=== PATIENT | male | born 1960 | race Caucasian/White ===

== ENCOUNTER → 2020-01-07 | Outpatient (CLI) | payer OTHER, MEDICAID ==
[~2020-01-07] MED LIST: ALLOPURINOL100 MG PO; AMLOPIDINE; ZOCOR
== END ==
LOC: COL.VAS 14:15
DX: I08.2 Rheumatic disorders of both aortic and tricuspid valves (principal); I77.810 Thoracic aortic ectasia; E66.9 Obesity, unspecified; I10 Essential (primary) hypertension; E78.5 Hyperlipidemia, unspecified; Z68.30 Body mass index [BMI] 30.0-30.9, adult

== ENCOUNTER → 2021-04-14 | Outpatient (CLI) | payer MEDICARE, MEDICAID ==
[2021-04-14 13:25] LABS: ALBUMIN 4.2 gm/dL (3.4-4.8); BILIRUBIN,TOTAL 0.9 mg/dL (0.2-1.2); CALCIUM 10.4 mg/dL (8.4-10.2); CREATININE, serum 0.8 mg/dL (0.72-1.25); POTASSIUM 3.9 mmol/L (3.5-4.5); TOTAL PROTEIN 7.2 gm/dL (6.2-8.1)
== END ==
LOC: COL.LAB 12:16
PROVIDERS: Registered Nurse
DX: R79.89 Other specified abnormal findings of blood chemistry (principal); F10.11 Alcohol abuse, in remission

== ENCOUNTER → 2021-04-25 | Outpatient (CLI) | payer MEDICARE, MEDICAID | LOC: COL.RAD 04-21 10:30 | DX: K76.0 Fatty (change of) liver, not elsewhere classified (principal); F10.11 Alcohol abuse, in remission ==

== ENCOUNTER → 2021-10-10 | Outpatient (CLI) | payer MEDICARE, MEDICAID | LOC: COL.RAD 10:00 | DX: K76.0 Fatty (change of) liver, not elsewhere classified (principal) ==

== ENCOUNTER 2021-11-07 15:33 | Observation (INO) | payer MEDICARE, MEDICAID ==
[~2021-11-07] VITALS: Ht 177.8 cm; Wt 106.5 kg
[2021-11-07 16:31] LABS: BASO # 0.1 K/mm3 (0.0-0.2); BASO % 0.6 % (0.0-2.0); GRAN # 7.8 K/mm3 (1.4-6.5); GRAN % 83.6 % (42.2-75.2); HEMOGLOBIN 11.7 g/dl (13.5-18.0); LYMPH # 0.6 K/mm3 (1.2-3.4); MEAN CELL VOLUME 90 fl (80.0-100.0); MEAN CORPUSCULAR HEMOGLOBIN 33 pg (27-31); MEAN CORPUSCULAR HGB CONC 37 g/dl (33.0-37.0); MONO # 0.9 K/mm3 (0.1-0.6); MONO % 9.5 % (1.7-9.3); PLATELET COUNT 266 K/mm3 (130-400); RED BLOOD COUNT 3.52 M/mm3 (4.20-5.60); REDCELL DISTRIBUTION WIDTH-CV 12.4 % (11.5-14.5)
[2021-11-07 16:33] LABS: HEMATOCRIT 31.6 % (42.0-52.0)
[2021-11-07 16:38] LABS: INR 1.1 (0.8-3.0); PROTHROMBIN TIME 12.4 SECONDS (9.7-12.8)
[2021-11-07 16:51] LABS: ALANINE AMINOTRANSFERASE 48 U/L (0-55); ALBUMIN 4.1 gm/dL (3.4-4.8); ALKALINE PHOSPHATASE 52 U/L (40-150); ANION GAP 13 mmol/L (7-16); AST,SGOT 46 U/L (5-34); BILIRUBIN,TOTAL 1.7 mg/dL (0.2-1.2); BLOOD UREA NITROGEN 28 mg/dL (8-26); CALCIUM 9.4 mg/dL (8.4-10.2); CARBON DIOXIDE 23 mmol/L (23-31); CHLORIDE 90 mmol/L (98-107); CREATININE, serum 1.48 mg/dL (0.72-1.25); GLUCOSE 144 mg/dL (70-99); LIPASE 225 U/L (8-78); SODIUM 126 mmol/L (136-145); TOTAL PROTEIN 7.3 gm/dL (6.2-8.1)
[2021-11-07 16:53] LABS: POTASSIUM 5.8 mmol/L (3.5-4.5)
[2021-11-07 17:11] LABS: TSH w REFLEX 2.501 uIU/mL (0.350-4.940)
[2021-11-07 17:22] LABS: COLLECTION METHOD CLEAN CATCH
[2021-11-07 17:28] LABS: TROPONIN-I < 0.010 ng/mL (0.00-0.033)
[2021-11-07 17:31] LABS: PH 6 (5-8); SQUAMOUS EPITHELIAL None Seen /hpf (0-10); URINE APPEARANCE Clear (CLEAR/HAZY); URINE BACTERIA None Seen /hpf (NONE SEEN); URINE BILIRUBIN Negative (NEGATIVE); URINE BLOOD Negative (NEGATIVE); URINE COLOR Yellow (YELLOW); URINE GLUCOSE Negative (NEGATIVE); URINE KETONE Negative (NEGATIVE); URINE LEUKOCYTE ESTERASE Negative (NEGATIVE); URINE NITRATE Negative (NEGATIVE); URINE PROTEIN(semi-quant) Negative (NEGATIVE); URINE RBC None Seen /hpf (0-2); URINE UROBILINOGEN Negative (NEGATIVE)
[2021-11-07] MEDS ORDERED: TOPROL XL 50MG50 MG PO (17:42)
[2021-11-07] MEDS ORDERED: TRIAMC 0.1 454 TOP (17:43)
[2021-11-07] MEDS ORDERED: NITROSTAT0.4 MG/TAB SL (17:43)
[2021-11-07] MEDS ORDERED: K-TAB20 PO (17:43)
[2021-11-07] MEDS ORDERED: DUPIXENT P300 MG/2 M SQ (17:43)
[2021-11-07 20:02] VITALS: BP 172/87; PULSE 117; TEMP 98.5
--- NOTE | 2021-11-07 21:53 | NUR ---
[facility], DX etoh detox, hyponatremia, DOTTIE,, alert/oriented x4, has tremors arms/hands, states has some pain to right shoulder/arm 3/10,, denies feeling anxious , just feels 'flat'. Iv fludis of NS at 125cc/hr to R/ac Iv site, was given 1 mg IV ativan as ordered, on CIWA protocol for detox, on fall precautions- bed alarm on-
[2021-11-07 22:40] VITALS: BP 123/59; PULSE 93; TEMP 98.1
[2021-11-08] VITALS (13 sets, daily range): BP systolic 112–175; BP diastolic 43–106; PULSE 72–104; TEMP 97.6–98.6
[2021-11-08] MEDS ORDERED: LIPITOR20 MG PO (01:27)
[2021-11-08] MEDS ORDERED: NORVASC 10MG10 MG PO (01:27)
[2021-11-08] MEDS ORDERED: CATAPRES 0.1MG0.1 MG PO (01:28)
[2021-11-08] MEDS ORDERED: FOLIC ACID 11 MG/TA1 PO (01:28)
[2021-11-08] MEDS ORDERED: PRINIVIL40 MG PO (01:29)
[2021-11-08] MEDS ORDERED: MAG-OX 400400 MG/TAB PO (01:30)
[2021-11-08] MEDS ORDERED: GLUCOPHAGE1000 MG PO (01:31)
[2021-11-08] MEDS ORDERED: COMPLETE MULTI1 TAB PO (01:32)
[2021-11-08] MEDS ORDERED: THIAMINE 1100 MG/TAB PO (01:32)
--- NOTE | 2021-11-08 05:33 | NUR ---
Quiet night-has been sleeping, VSS, only had the one dose of Ativan when admitted to medical floor- CIWA scores 2-3 throughout the night. Iv fluids of NS at 125cc/hr.
[2021-11-08 06:48] LABS: BASO # 0.1 K/mm3 (0.0-0.2); BASO % 0.8 % (0.0-2.0); EOS # 0.1 K/mm3 (0.0-0.7); EOS % 1.2 % (0.0-4.0); GRAN % 67.3 % (42.2-75.2); HEMOGLOBIN 11.4 g/dl (13.5-18.0); LYMPH # 1.2 K/mm3 (1.2-3.4); LYMPH % 19.6 % (20.0-51.0); MEAN CELL VOLUME 93 fl (80.0-100.0); MEAN CORPUSCULAR HEMOGLOBIN 33 pg (27-31); MEAN CORPUSCULAR HGB CONC 35 g/dl (33.0-37.0); MEAN PLATELET VOLUME 9.3 fl (7.4-10.4); MONO # 0.7 K/mm3 (0.1-0.6); MONO % 10.9 % (1.7-9.3); PLATELET COUNT 240 K/mm3 (130-400); REDCELL DISTRIBUTION WIDTH-CV 12.5 % (11.5-14.5)
[2021-11-08 07:12] LABS: HEMATOCRIT 32.6 % (42.0-52.0)
[2021-11-08 07:16] LABS: CALCIUM 9.1 mg/dL (8.4-10.2); CREATININE, serum 0.95 mg/dL (0.72-1.25); MAGNESIUM 2.6 mg/dL (1.6-2.6); POTASSIUM 4.8 mmol/L (3.5-4.5)
--- NOTE | 2021-11-08 09:12 | NUR ---
Initial visit; Patient thanked Interior Design Consultant for looking in on him and wishing him God's blessings.
--- NOTE | 2021-11-08 15:45 | NUR ---
Data Processing Equipment Repairer met with patient to discuss discharge planning. Patient lives [place] in [place] and sees BOB[facility] Del Angel for primary care. Patient obtains medications from [facility] in and has a cane and walker at home. Patient states he has had recent difficulties with ADLS and that he's had a especially rough week. DANIELLE discussed PT recommendation for post acute rehab and he is agreeable. DANIELLE advised that [facility] are in network with [facility] and patient is agreeable to have referrals sent. DANIELLE contacted both facilities and faxed referrals. Both facilities declined referral at this time. [facility] specifically advised they do not have bed availability. DANIELLE met with patient to provide update. SW discussed referral to [facility] and patient would like SW to discuss this with his family. DANIELLE and RN-CM presented HALE form to patient and advised that he has been downgraded to OBS status. Patient verbalized understanding and provided signature. DANIELLE placed form in chart and provided copy to patient. DANIELLE contacted patient's mother, Rosa and provided the above update. Rosa feels patient is not safe to return home and is agreeable to referral to [facility]. DANIELLE contacted Soo at [facility] and gave referral. DANIELLE also submitted clinicals to [facility] to request authorization for rehab. Discharge Plan: Post acute rehab pending referral at [facility] and insurance auth
--- NOTE | 2021-11-08 17:27 | NUR ---
PATIENT DOING WELL AND NOW SCORING 0 ON CIWA PROTOCOL. DOING WELL WITH [facility] SOFT DIET. TAKES PILLS WHOLE WITHOUT ISSUE. VERY MINIMAL TREMORS NOTED. PLEASANT, A&O X4. HAS NOT BEEN OBSERVED AMBULATING THIS SHIFT, USES URINAL FOR VOIDING. FLUIDS RUNNING ORDERED.
--- NOTE | 2021-11-08 22:50 | NUR ---
Patient assessed. Denies having pain and discomfort. Peripheral IV to right AC with IV fluids running per orders. Denies SOB and dyspnea. LS CTA in upper lobes, diminished in lower. HRR. Telemetry in place. BSAx4. Patient voices no questions, needs, or concerns at this time. In bed with call light within reach. Bed alarm on.
[2021-11-09] VITALS (9 sets, daily range): BP systolic 12–138; BP diastolic 58–88; PULSE 74–86; TEMP 97.7–98.5
--- NOTE | 2021-11-09 09:16 | NUR ---
PT SITITNG UP ON EDGE OF BED. MORNING MEDICATIONS GIVEN. SHIFT ASSESSMENT COMPLETED. IVF INFUSING AT 75ML/HR. PT DENIES ANY PAIN OR NEEDS AT THIS TIME. CONTINUING TO MONITOR.
[2021-11-09 11:51] LABS: CALCIUM 8.4 mg/dL (8.4-10.2); CREATININE, serum 0.81 mg/dL (0.72-1.25); POTASSIUM 4.6 mmol/L (3.5-4.5)
--- NOTE | 2021-11-09 16:18 | NUR ---
Field Marketing Lead spoke with Soo at [facility] and she advised they are concerned with patient detoxing and will continue to review updates, but are not likely able to accept. DANIELLE contacted Rashmi at [facility] and faxed referral. Rashmi advised they can medically accept, however they are [facility] of network [facility] and worry about patient having an out of pocket cost. DANIELLE contacted [facility] and was advised SNF auth was approved, but they need a facility. DANIELLE advised that both in network facilities in [place], [facility] and [facility] do not have a bed available for patient and he is ready for discharge. The treasury representative at [facility] advised she would look into approving auth for [facility] since the two in network facilities are full at this time. [facility] will also request patient complete DPOA-HC prior to admit. Additional referrals sent to [facility], [facility], and [facility]. DANIELLE spoke with both patient's mother, Rosa and sister, Sarah to provide update. Both are in agreemnt with placement. Patient's sister advised patient's home is not safe for him to return to at this time. Sarah also advised they have tried to have patient sign a DPOA-HC in the past but he has refused. SW to update Sarah tomorrow on placement.
--- NOTE | 2021-11-09 20:30 | NUR ---
Initial shift assessment done- denies pain, Iv fluids of NS at 75cc/hr, denies anxiety at this time, VSS, states "they have tricked me so I cant go home" understands rehab is to get him stronger so he doesnt have all the falls-
[2021-11-10] VITALS (11 sets, daily range): BP systolic 110–159; BP diastolic 52–97; PULSE 75–86; TEMP 97.8–98.6
--- NOTE | 2021-11-10 05:42 | NUR ---
Quiet night- VSS, did not need Ativan during the shift for detox scores,
[2021-11-10 07:31] LABS: BASO % 0.8 % (0.0-2.0); EOS # 0.1 K/mm3 (0.0-0.7); EOS % 2.6 % (0.0-4.0); GRAN # 3.3 K/mm3 (1.4-6.5); GRAN % 66.4 % (42.2-75.2); HEMOGLOBIN 10.7 g/dl (13.5-18.0); LYMPH % 20.3 % (20.0-51.0); MEAN CELL VOLUME 93 fl (80.0-100.0); MEAN CORPUSCULAR HEMOGLOBIN 33 pg (27-31); MEAN CORPUSCULAR HGB CONC 35 g/dl (33.0-37.0); MEAN PLATELET VOLUME 9.7 fl (7.4-10.4); MONO # 0.5 K/mm3 (0.1-0.6); MONO % 9.5 % (1.7-9.3); PLATELET COUNT 181 K/mm3 (130-400); RED BLOOD COUNT 3.27 M/mm3 (4.20-5.60); REDCELL DISTRIBUTION WIDTH-CV 12.2 % (11.5-14.5)
[2021-11-10 07:41] LABS: HEMATOCRIT 30.4 % (42.0-52.0)
[2021-11-10] MEDS ORDERED: NORVASC 5MG5 MG/TAB PO (07:50)
[2021-11-10 08:05] LABS: ALBUMIN 3.3 gm/dL (3.4-4.8); CALCIUM 8.5 mg/dL (8.4-10.2); CREATININE, serum 0.71 mg/dL (0.72-1.25); MAGNESIUM 1.1 mg/dL (1.6-2.6); POTASSIUM 3.9 mmol/L (3.5-4.5)
--- NOTE | 2021-11-10 15:25 | NUR ---
Pipelaying Fitter contacted Shilpa at [facility] who advised she obtained authorization from [facility] for [place] even though they are out of network due to the in network facilities being full. Auth #[id number]. Next review date is 11/14/21. DANIELLE met with patient to discuss discharge planning and he is agreeable to [facility]. DANIELLE also discussed Advance Directives with patient who is agreeable to comlete DPOA-HC form and wants to designate his sister, Sarah and his mother, Rosa. DANIELLE assisted patient in completing form, then DANIELLE and RNTAURUS Morales provided witness signature. DANIELLE also contacted [facility] and secured copy of patient's vaccine records as [facility] require proof of covid vaccine for admit. DANIELLE contacted Shelby at [facility] and provided the above information. Shelby advised they cannot take an admit today, but could take patient first thing Saturday morning. Shelby advised they are working with [facility] to have auth start on Saturday instead of today. DANIELLE offered to assist with securing transport as this was reported to be on of the barriers to admit today, however Shelby advised even with transport, they cannot admit today. DANIELLE contacted [facility], and [facility] and they all cannot take a new admit today. Soo at [facility] left SW a message advising that they are going to decline referral at this time. DANIELLE collaborated with Hospitalist and plan will be for discharge to [facility] on Saturday. DANIELLE contacted [facility] to confirm that patient will stay until Saturday then discharge to their facility. DANIELLE faxed clinical updates including proof of covid vaccine and DPOA-HC to [facility]. DANIELLE contacted patient's sister, Sarah to provide update and also updated patient on plan for discharge Saturday. Discharge Plan: [facility] Saturday
[2021-11-11 05:15] VITALS: BP 149/74; PULSE 74; TEMP 98.6
[2021-11-11 07:32] LABS: BASO # 0.1 K/mm3 (0.0-0.2); EOS # 0.2 K/mm3 (0.0-0.7); EOS % 3.6 % (0.0-4.0); GRAN # 3.1 K/mm3 (1.4-6.5); GRAN % 62.8 % (42.2-75.2); HEMOGLOBIN 11.2 g/dl (13.5-18.0); LYMPH # 0.9 K/mm3 (1.2-3.4); LYMPH % 18.5 % (20.0-51.0); MEAN CELL VOLUME 93 fl (80.0-100.0); MEAN CORPUSCULAR HEMOGLOBIN 33 pg (27-31); MEAN CORPUSCULAR HGB CONC 35 g/dl (33.0-37.0); MEAN PLATELET VOLUME 9.6 fl (7.4-10.4); MONO # 0.7 K/mm3 (0.1-0.6); MONO % 13.7 % (1.7-9.3); PLATELET COUNT 185 K/mm3 (130-400); RED BLOOD COUNT 3.41 M/mm3 (4.20-5.60); REDCELL DISTRIBUTION WIDTH-CV 12.4 % (11.5-14.5)
[2021-11-11 07:36] LABS: HEMATOCRIT 31.6 % (42.0-52.0)
[2021-11-11 07:46] VITALS: BP 144/67; PULSE 101; TEMP 98.2
[2021-11-11 07:55] LABS: ALBUMIN 3.4 gm/dL (3.4-4.8); CALCIUM 8.8 mg/dL (8.4-10.2); CREATININE, serum 0.74 mg/dL (0.72-1.25); MAGNESIUM 1.1 mg/dL (1.6-2.6); PHOSPHOROUS 3.4 mg/dL (2.3-4.7); POTASSIUM 3.8 mmol/L (3.5-4.5)
[2021-11-11 11:53] VITALS: BP 119/72; PULSE 80; TEMP 98.3
[2021-11-11 16:54] VITALS: BP 105/51; PULSE 95; TEMP 98.3
[2021-11-11 20:21] VITALS: BP 154/70; PULSE 79; TEMP 98.7
[2021-11-12 00:50] VITALS: BP 167/95; PULSE 73; TEMP 98.6
[2021-11-12 07:14] LABS: ALBUMIN 3.5 gm/dL (3.4-4.8); CALCIUM 8.8 mg/dL (8.4-10.2); CREATININE, serum 0.73 mg/dL (0.72-1.25); MAGNESIUM 1.1 mg/dL (1.6-2.6); PHOSPHOROUS 3.4 mg/dL (2.3-4.7); POTASSIUM 3.4 mmol/L (3.5-4.5)
[2021-11-12 08:03] VITALS: BP 137/76; PULSE 98; TEMP 97.8
[2021-11-12 08:16] LABS: BASO # 0.1 K/mm3 (0.0-0.2); BASO % 1.1 % (0.0-2.0); EOS # 0.2 K/mm3 (0.0-0.7); EOS % 2.8 % (0.0-4.0); GRAN # 3.5 K/mm3 (1.4-6.5); GRAN % 61.6 % (42.2-75.2); HEMOGLOBIN 11.2 g/dl (13.5-18.0); LYMPH # 1.1 K/mm3 (1.2-3.4); LYMPH % 18.8 % (20.0-51.0); MEAN CELL VOLUME 90 fl (80.0-100.0); MEAN CORPUSCULAR HEMOGLOBIN 33 pg (27-31); MEAN CORPUSCULAR HGB CONC 36 g/dl (33.0-37.0); MEAN PLATELET VOLUME 9.8 fl (7.4-10.4); MONO # 0.9 K/mm3 (0.1-0.6); MONO % 15.3 % (1.7-9.3); PLATELET COUNT 205 K/mm3 (130-400); RED BLOOD COUNT 3.42 M/mm3 (4.20-5.60); REDCELL DISTRIBUTION WIDTH-CV 12.4 % (11.5-14.5)
[2021-11-12 08:31] LABS: HEMATOCRIT 30.8 % (42.0-52.0)
[2021-11-12 12:48] VITALS: BP 130/54; PULSE 78; TEMP 99.2
[2021-11-12 16:02] VITALS: BP 139/53; PULSE 81; TEMP 99
[2021-11-12 20:01] VITALS: BP 144/64; PULSE 78; TEMP 98.4
--- NOTE | 2021-11-12 20:30 | NUR ---
Initial shift assessment done- Resting in bed- alert/Oriented, states he is going to residential tomorrow, overall still has weak/slightly unsteady gait- Up to bathroom with cane and assistance. Tele on-90/min SR, Denies pain/SOB, denies need for a snack tonight-
[2021-11-13 00:02] VITALS: BP 139/79; PULSE 79; TEMP 98.3
[2021-11-13 04:05] VITALS: BP 137/55; PULSE 78; TEMP 98.7
--- NOTE | 2021-11-13 05:48 | NUR ---
Quiet night-- maybe slept 3-4 hours this shift- no requests, VSS
[2021-11-13 07:24] LABS: BASO # 0.1 K/mm3 (0.0-0.2); BASO % 1.4 % (0.0-2.0); EOS # 0.2 K/mm3 (0.0-0.7); EOS % 4.3 % (0.0-4.0); GRAN % 58.4 % (42.2-75.2); HEMOGLOBIN 11.7 g/dl (13.5-18.0); LYMPH # 1.1 K/mm3 (1.2-3.4); LYMPH % 20.6 % (20.0-51.0); MEAN CELL VOLUME 89 fl (80.0-100.0); MEAN CORPUSCULAR HEMOGLOBIN 33 pg (27-31); MEAN CORPUSCULAR HGB CONC 37 g/dl (33.0-37.0); MEAN PLATELET VOLUME 9.6 fl (7.4-10.4); MONO # 0.8 K/mm3 (0.1-0.6); MONO % 15.1 % (1.7-9.3); PLATELET COUNT 211 K/mm3 (130-400); RED BLOOD COUNT 3.54 M/mm3 (4.20-5.60); REDCELL DISTRIBUTION WIDTH-CV 12.3 % (11.5-14.5)
[2021-11-13 07:26] LABS: HEMATOCRIT 31.6 % (42.0-52.0)
[2021-11-13 07:48] LABS: ALBUMIN 3.5 gm/dL (3.4-4.8); CALCIUM 8.9 mg/dL (8.4-10.2); CREATININE, serum 0.76 mg/dL (0.72-1.25); MAGNESIUM 1.6 mg/dL (1.6-2.6); PHOSPHOROUS 3.3 mg/dL (2.3-4.7); POTASSIUM 3.9 mmol/L (3.5-4.5)
[2021-11-13 08:16] VITALS: BP 148/76; PULSE 87; TEMP 98.3
--- NOTE | 2021-11-13 08:53 | NUR ---
Patient just finished breakfast. VSS. To be discharge at 10 am. Assessment completed, meds provided.
[2021-11-13 09:00] VITALS: BP 148/76; PULSE 87; TEMP 98.3
--- NOTE | 2021-11-13 10:15 | NUR ---
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 Paperwork was provided to her. Patient discharged.
--- NOTE | 2021-11-13 10:43 | NUR ---
Miller Apprentice collaborated with Shelby at [facility] about discharge. Transport time set for 1000. SW provided transport time to patient, RN, and Hospitalist. SW faxed discharge orders. SW contacted patient's sister, Sarah and left a message. SW attempted to contact patient's mother, Rosa but was unable to leave a message. Discharge Plan: [facility]
== END 2021-11-13 10:13 ==
LOC: COL.ER 15:33 → MEDICAL 18:29
PROVIDERS: Emergency Medicine; Internal Medicine; Student in an Organized Health Care Education/Training Program; ADMIT Internal Medicine
DX: R41.82 Altered mental status, unspecified (principal); R53.1 Weakness; R29.6 Repeated falls; F10.10 Alcohol abuse, uncomplicated; E87.1 Hypo-osmolality and hyponatremia; E87.5 Hyperkalemia; E83.42 Hypomagnesemia; N17.9 Acute kidney failure, unspecified; I10 Essential (primary) hypertension; R13.10 Dysphagia, unspecified; E11.9 Type 2 diabetes mellitus without complications; E78.5 Hyperlipidemia, unspecified; Z79.84 Long term (current) use of oral hypoglycemic drugs; I08.1 Rheumatic disorders of both mitral and tricuspid valves
CPT/HCPCS: 99223-AI; 99232-AI; 99233-AI; G0378; J1644; J2060; J2270; J2405; J3411; J3475; J7030; J7120

== ENCOUNTER → 2023-08-13 | Outpatient (CLI) | payer MEDICARE, MEDICAID ==
[~2023-08-13] MED LIST changes: +CATAPRES 0.1MG0.1 MG PO; +COMPLETE MULTI1 TAB PO; +DUPIXENT P300 MG/2 M SQ; +FOLIC ACID 11 MG/TA1 PO; +GLUCOPHAGE1000 MG PO; +K-TAB20 PO; +LIPITOR20 MG PO; +MAG-OX 400400 MG/TAB PO; +NITROSTAT0.4 MG/TAB SL; +NORVASC 10MG10 MG PO; +NORVASC 5MG5 MG/TAB PO; +PRINIVIL40 MG PO; +THIAMINE 1100 MG/TAB PO; +TOPROL XL 50MG50 MG PO; +TRIAMC 0.1 454 TOP
== END ==
LOC: COL.RAD 07:44
DX: M47.812 Spondylosis without myelopathy or radiculopathy, cervical region (principal); M47.816 Spondylosis without myelopathy or radiculopathy, lumbar region; M47.817 Spondylosis without myelopathy or radiculopathy, lumbosacral region; M48.02 Spinal stenosis, cervical region; Z98.1 Arthrodesis status

== ENCOUNTER → 2023-09-23 | Outpatient (CLI) | payer MEDICARE | LOC: COL.RAD 08:06 | DX: Z98.1 Arthrodesis status (principal) ==

== ENCOUNTER → 2023-11-14 | Outpatient (CLI) | payer MEDICARE | LOC: MHCPAIN 10:33 | DX: M47.817 Spondylosis without myelopathy or radiculopathy, lumbosacral region (principal); M54.50 Low back pain, unspecified ==

== ENCOUNTER → 2023-11-19 | Outpatient (CLI) | payer MEDICARE | LOC: MHCPAIN 14:24 | DX: M47.817 Spondylosis without myelopathy or radiculopathy, lumbosacral region (principal); M54.50 Low back pain, unspecified; I25.10 Atherosclerotic heart disease of native coronary artery without angina pectoris; Z95.5 Presence of coronary angioplasty implant and graft; I10 Essential (primary) hypertension; E11.9 Type 2 diabetes mellitus without complications | CPT/HCPCS: G0463 ==

== ENCOUNTER → 2024-02-21 | Outpatient (CLI) | payer MEDICARE | LOC: MHCPAIN 11:03 | DX: M47.816 Spondylosis without myelopathy or radiculopathy, lumbar region (principal); M48.061 Spinal stenosis, lumbar region without neurogenic claudication; I10 Essential (primary) hypertension; E11.9 Type 2 diabetes mellitus without complications; Z79.84 Long term (current) use of oral hypoglycemic drugs; Z98.1 Arthrodesis status | CPT/HCPCS: G0463 ==